=== PATIENT | male | born 1995 | race Caucasian/White ===

== ENCOUNTER 2023-06-02 20:07 | Emergency (ER) | payer BC ==
[~2023-06-02] VITALS: Ht 177.8 cm; Wt 77.0 kg
[~2023-06-02 20:07] MED LIST: OMEPRAZOLE20 MG PO; TRAMADOL HCL50 MG PO
[2023-06-02] MEDS ORDERED: HYDROCODON-ACE1 EA10 PO (21:08)
[2023-06-02 21:50] VITALS: BP 129/70
== END 2023-06-02 21:50 | disposition home or self-care (01) ==
LOC: ED 20:07
DX: S62.326A Displaced fracture of shaft of fifth metacarpal bone, right hand, initial encounter for closed fracture (principal); W10.9XXA Fall (on) (from) unspecified stairs and steps, initial encounter
CPT/HCPCS: 73130; 99283-25; A9270

== ENCOUNTER 2023-06-13 05:45 | Day surgery (SDC) | payer OTHER, BC ==
[~2023-06-13] VITALS: Ht 177.8 cm; Wt 78.2 kg
[~2023-06-13 05:45] MED LIST changes: +HYDROCODON-ACE1 EA10 PO
[2023-06-13 06:07] VITALS: BP 127/62
--- NOTE | 2023-06-13 07:38 | NUR ---
ROUNDS. PT GONE FOR PROCEDURE. PROVIDED SILENT PRAYER.
[2023-06-13] MEDS ORDERED: HYDROCODON-ACE1 EA11 PO (08:08)
--- NOTE | 2023-06-13 08:15 | NUR ---
06/13/23 0815 Ariane Guerra 0808 PT TO PACU SLEEPING, BREATHS UNLABORED ON ROOM AIR MAINTAINS SATS ABOVE 90% ON ROOM AIR.
[2023-06-13 08:38] VITALS: BP 118/73
--- NOTE | 2023-06-13 09:25 | NUR ---
NOEMÍ 0910: PT TURNS ON HIS CALL LIGHT. HE WOULD LIKE TO GET UP AND USE THE RESTROOM. HE IS HELPED INTO HIS IMMOBILIZER SLING. HE AMBULATES INDEPENDENTLY TO AND FROM THE RESTROOM. HE IS ABLE TO VOID 400MLS OF DARK YELLOW URINE. NOEMÍ 0913: HE IS EDUCATED THAT AT THIS POINT, HE IS TOLERATING WATER AND HAS GONE TO THE BATHROOM, ALL HE HAS LEFT IS TO HIT THE HOUR MARKUS AND EAT SOME OF HIS CRACKERS, THEN HE CAN GO HOME.
[2023-06-13 09:50] VITALS: BP 133/64
--- NOTE | 2023-06-13 10:23 | OR ---
[facility] [address] [place], [place] [address] Signed DATE OF OPERATION: 06/13/2023 SURGEON: Alexandre Guerra MD PREOPERATIVE DIAGNOSIS: Displaced right 5th metacarpal fracture. POSTOPERATIVE DIAGNOSIS: Displaced right 5th metacarpal fracture. PROCEDURE PERFORMED: Open reduction and internal fixation, right 5th metacarpal. MISSILE FACILITIES REPAIRER: None. ANESTHESIA: General. BLOOD LOSS: None. TOURNIQUET TIME: 32 minutes. IMPLANTS: Arthrex 4.0 headless screw. BRIEF HISTORY: Sandip is a 28-year-old gentleman, who suffered a ground level fall fracturing his hand. Risks and benefits of operative treatment were discussed with him and he elected to proceed. DESCRIPTION OF PROCEDURE: Once consent was obtained, he was taken to the operating room. After adequate anesthesia, he was placed on the operating room table with a hand table. The arm was prepped and draped in a standard sterile fashion after general anesthesia was established. The arm was exsanguinated using Esmarch bandage. Tourniquet inflated to 200 mmHg. Initially, closed reduction was attempted. Given the transverse nature of the fracture, we were unable to reduce and hold it. A 1 inch incision was centered on Electronically Signed By: ALEXANDRE GUERRA MD 06/13/23 1023 PATIENT NAME: SANDIP RUELAS OPERATIVE REPORT DATE OF : [birth year] REPORT #: [id number] PHYSICIAN: ALEXANDRE GUERRA MD PCP: SHARA MADRID REPORT IS CONFIDENTIAL AND NOT TO BE RELEASED WITHOUT AUTHORIZATION [facility] [address] [place] [place] [address] Signed the fracture, taken through the skin and subcutaneous tissue. The extensor tendons were carefully identified and mobilized. These were protected. The fracture was then reduced under direct visualization. Once this was accomplished, the guide pin was advanced from the distal end of the metacarpal across the fracture into a center-center position proximally. This was then measured and a 36 mm screw was selected. The guide pin was overdrilled and the screw was advanced from the distal end of the metacarpal across the fracture engaging the body. Careful attention was paid to rotation of the metacarpal during this portion of procedure. The screw was tightened up with excellent compression and alignment was near anatomic. The guide pin was removed. The wounds were copiously irrigated with antibiotic solution and closed using 3-0 Monocryl and the skin was sealed with Dermabond and Steri-Strips. He was placed in an ulnar gutter splint, taken to the recovery room in satisfactory condition. All sponge, needle, and instrument counts were correct. Alexandre Guerra MD BA/JOJO /[id number] Copies: ~ Electronically Signed By: ALEXANDRE GUERRA MD 06/13/23 1023 PATIENT NAME: SANDIP RUELAS OPERATIVE REPORT DATE OF : [birth year] REPORT #: [id number] PHYSICIAN: ALEXANDRE GUERRA MD PCP: SHARA MADRID REPORT IS CONFIDENTIAL AND NOT TO BE RELEASED WITHOUT AUTHORIZATION
--- NOTE | 2023-06-13 10:23 | NUR ---
LE 0940: PT IS UP TO USE THE BATHROOM AGAIN. HE AMBULATES INDEPENDENTLY TO AND FROM. LE 0950: PT'S IV IS REMOVED. HE AND GIRLFRIEND ARE GIVEN WRITTEN AND VERBAL DC INSTRUCTIONS. THEY BOTH VERBALIZE UNDERSTANDING. HE QUESTIONS WORKING, HE IS EDCUATED THAT HE SHOULD NOT BE USING THAT HARD AT ALL AND TO CALL THE OFFICE FOR A WORK NOTE. HE IS EDUCATED ON HOW TO BEST DRESS HIMSELF AND TO OPEN HIS CURTAIN WHEN HE IS READY. LE 1005: DR. SHAW IS ASKED FOR CLARIFICATION ON WORK RESTRICTIONS, HE VERBALIZES NO USE OF THE RIGHT HAND. THIS INFORMATION IS REINFORCED WITH THE PT AND TO CALL THE OFFICE FOR A WORK NOTE. LE 1010: PT IS TAKEN TO PERSONAL VEHICLE VIA WC. WAIT IN LOBBY FOR RIDE TO ARRIVE. LE 1020: RIDE ARRIVES. HE IS ABLE TO TRANSFER HIMSELF FROM WC TO VEHICLE. LE 1023: OR BRINGS UP HIS WRIST BRACE HE CAME IN WITH THE MORNING, STATING DR. SHAW SAID HE IS GOING TO NEED IT. A MESSAGE IS LEFT FOR THE GIRLFRIEND THAT IT WILL BE LEFT IN A BAG AT THE FRONT ENTRANCE IF THEY COULD COME BACK AND GET IT.
== END 2023-06-13 10:10 | disposition home or self-care (01) ==
LOC: DS 05:45 → OPS 05:45
PROVIDERS: ATTEND Specialist
PROC: 0PSP04Z Reposition Right Metacarpal with Internal Fixation Device, Open Approach (ICD-10-PCS; principal; 2023-06-13 07:00)
DX: S62.306A Unspecified fracture of fifth metacarpal bone, right hand, initial encounter for closed fracture (principal); W01.0XXA Fall on same level from slipping, tripping and stumbling without subsequent striking against object, initial encounter
CPT/HCPCS: 01830; 64417; 73120; C1713; C1769; J0690; J1100; J1885; J2001; J2250; J2405; J2704; J2795; J3010; J7121